=== PATIENT | male | born 1970 | race Caucasian/White ===

== ENCOUNTER 2022-06-28 09:47 | Emergency (ER) | payer OTHER, BC, SELFPAY ==
[2022-06-28 09:48] VITALS: BP 153/82; PULSE 63; RESP 18; TEMP 35.6; O2SAT 97; BMI 40.0
--- NOTE | 2022-06-28 10:01 | RAD_ITS ---
HISTORY: injury -- prox 5th pain. TECHNIQUE: XR Foot Min 3 Views. COMPARISON: None. FINDINGS: BONES : No acute fracture identified. Calcaneal enthesopathy and degenerative osteophytes noted. JOINTS: No dislocation. Mild degenerative change. SOFT TISSUES: Peripheral vascular disease. RAD/Foot min 3 Views IMPRESSION: No acute fracture or dislocation identified in the right foot. Electronically Signed: Maxine Tejeda MD at 10:31 EDT ,
--- NOTE | 2022-06-28 10:02 | ED.VIS.LOWEX ---
HPI History of Present Illness Chief Complaint: Lower Extremity Injury Informant: patient Narrative Narrative: Inversion injury right ankle and foot prior to arrival. Carrying extension ladder when he stepped in a divot in the grass. No falls or head injuries. No medications taken. History of left ankle and foot tendon rupture currently in a brace followed by Dr. Jensen Salazar. He has planned surgery in 2 weeks. Denies paresthesias. Denies history of gastric ulcers or kidney injury. PFSH PFSH Home Medications phentermine 7.5 mg-topiramate ER 46 mg capsule,ext.release 24hr mphase (Qsymia) 1 cap PO DAILY 06/28/22 [History Last Taken Unknown] Allergy/AdvReac Type Severity Reaction Status Date / Time Environmental Allergies: Allergy Rash Verified 06/28/22 09:56 Uncoded [metal] Penicillins Allergy PT UNSURE Verified 06/28/22 09:56 OF REACTION Sulfa (Sulfonamide Allergy PT UNSURE Verified 06/28/22 09:56 Antibiotics) OF REACTION [sulfa drugs] metformin AdvReac Abd Verified 06/28/22 09:56 cramps/diarrhea semaglutide [From Rybelsus] AdvReac Other Verified 06/28/22 09:56 Surgical History Hx of abdominal surgery Social History Smoking Status: Never smoker ROS ROS ED Constitutional Constitutional ED: Denies chills, fever(s) or sweats Eyes Eyes: Denies change in vision ENT ENT ED: Denies dysphagia or sore throat Cardiovascular Cardiovascular: Denies chest pain, leg edema, palpitations or racing heartbeat Respiratory/Chest Respiratory/Chest: Denies cough, dyspnea or dyspnea on exertion Gastrointestinal Gastrointestinal: Denies abdominal pain, diarrhea, nausea or vomiting Genitourinary Genitourinary ED: Denies dysuria, hematuria or urinary frequency Musculoskeletal Musculoskeletal: Reports extremity pain and other Details: Right ankle and foot pain. ; Denies back pain or neck pain Integumentary Denies rash or wounds Neurologic Neurologic: Denies headache(s), paresthesias or weakness EXAM Physical Exam Const Vital Signs: 06/28/22 09:48 Temperature 96.1 F L Temperature Source Temporal Pulse Rate 63 Respiratory Rate 18 Blood Pressure 153/82 H Blood Pressure Mean 105 Pulse Ox 97 Oxygen Delivery Method Room Air Positive well nourished and well developed General Appearance ED: well developed and NAD HEENT Reports moist mucous membranes normocephalic and atraumatic Eyes PERRL, EOMs intact bilaterally and conjunctivae normal General Eye ED: Yes normal appearance of both eyes Neck no lymphadenopathy and supple General: Negative for tenderness Chest Wall Chest: Negative for tenderness Resp normal respiratory effort and normal air movement Effort and Inspection: symmetric chest movement; Negative for respiratory distress Cardio regular rate, regular rhythm and no murmurs Peripheral Pulses: pulses 2+ throughout GI normal to inspection, nondistended, normoactive bowel sounds and non-tender Palpation: Negative for guarding or rebound tenderness present Back/Spine no CVA tenderness and no thoracic nor lumbar tenderness Extremity Extremity Narrative: Right lower; no hip or knee tenderness. There is no malleoli or tenderness. There is swelling lateral malleolus tenderness ATFL. Also tenderness proximal fifth base. Skin intact. Neuro vas intact. Left lower extremity: Nontender. Left ankle brace noted. General Extremety ED: Negative for edema or tenderness General Extremity: Negative for edema Neuro oriented x3 and no sensory deficits noted Sensorium / Orientation: awake and alert Skin no rashes or lesions noted and no wounds MDM MDM MDM Narrative Medical decision making narrative: Patient treated with naproxen. Three-view x-ray right ankle and three-view x-ray right foot reviewed by myself and read by radiology shows no fractures or dislocations. Aircast provided. Appropriate work restrictions. He is given follow-up with occupational health. He also currently following orthopedics. He will continue his Aleve at home. All questions were answered. Radiography Diagnostic Testing: Clinical Impression(s) from Imaging Studies Foot X-Ray 06/28/22 10:01 IMPRESSION: No acute fracture or dislocation identified in the right foot. Electronically Signed: Maxine Tejeda MD at 10:31 EDT , Ankle X-Ray 06/28/22 10:20 IMPRESSION: No acute fracture or dislocation identified in the right ankle. Electronically Signed: Maxine Tejeda MD at 10:31 EDT , Discharge Plan Triage Chief Complaint: Lower Extremity Injury ED Provider: Jordy Flores Dx/Rx/DC Orders Clinical Impression: Right ankle sprain, Right foot sprain, Work related injury Instructions: ED Sprain Ankle W X Ray, ED Foot Sprain Prescriptions: No Action Qsymia 7.5-46 mg Capsule, Er Multiphase 24 Hr 1 cap PO DAILY Primary Care Provider: ANGELA HALE Referrals: [facility] Doctor,Out of [Non-Staff] - Activity Restrictions/Additional Instructions: Right ankle foot x-ray negative for fracture. Wear splint for stability. Continue Aleve every 12 hours. Follow-up with occupational health or now clinic for outpatient evaluation. Work restrictions as noted. Disposition Disposition: Home, Self Care Discharge Date/Time: 06/28/22 11:06
[2022-06-28] MEDS: Naproxen 250 MG Tablet 500 MG PO (10:07)
--- NOTE | 2022-06-28 10:20 | RAD_ITS ---
HISTORY: injury. TECHNIQUE: XR Ankle Min 3 Views. COMPARISON: None. FINDINGS: BONES : No acute fracture identified. Old avulsion fracture of the lateral malleolus. Calcaneal enthesopathy noted. Degenerative osteophytes at the ankle and hindfoot. JOINTS: No dislocation. Mild degenerative change. SOFT TISSUES: Mild soft tissue swelling. RAD/Ankle min 3 Views IMPRESSION: No acute fracture or dislocation identified in the right ankle. Electronically Signed: Maxine Tejeda MD at 10:31 EDT ,
== END 2022-06-28 11:06 | disposition home or self-care (01) ==
PROVIDERS: Emergency Provider Emergency Medicine; Visit Provider Emergency Medicine
DX: S93.401A Sprain of unspecified ligament of right ankle, initial encounter (principal); X50.1XXA Overexertion from prolonged static or awkward postures, initial encounter; Y93.9 Activity, unspecified; Y99.0 Civilian activity done for income or pay; Y92.89 Other specified places as the place of occurrence of the external cause
CPT/HCPCS: 73610; 73630; 99283